=== PATIENT | male | born 1980 ===

== ENCOUNTER 2020-08-25 14:38 | Inpatient (IN) ==
[2020-08-25] MEDS ORDERED: ACETAMINOPHEN 1,000 MG/100 ML VIAL IV STA (17:43)
[2020-08-25] MEDS ORDERED: SODIUM CHLORIDE 0.9% 1000ML 1,000 ML IV ONE (17:43)
[2020-08-25] MEDS ORDERED: XYLOCAINE 1%/SOD BICARB 20 ML VIAL INFIL ONE (17:43)
--- NOTE | 2020-08-25 18:06 | Emergency Department Note ---
History of Present Illness General Chief complaint: Infection, Wound Stated complaint: RIGHT TOE INFECTION, VOMITING, PECTORAL PAIN Time Seen by Provider: 08/25/20 17:33 Source: patient Mode of arrival: ambulatory Limitations: no limitations History of Present Illness Provider complaint: Right toe infection and pain Onset (ago): week(s) Location: foot Radiation: non-radiation Severity: moderate Pain Consistency: + constant Maximum Pain Intensity: 5 Current Pain Intensity: 5 Quality: + constant Relieved By: + none Exacerbated By: + movement Associated symptoms: + denies other symptoms Treatments prior to arrival: none This is a 40-year-old male who presents due to concern for persistent and worsening right great toe infection and pain. Patient states he initially began with problems following an accidental stubbing of his toe at home in which she believes small wooden splinters got underneath the toenail. He states his was a nurse stuck them out, and contacted a friend of hers who evaluated him in the emergency department. Due to the fact that he is a type I diabetic he was immediately started on Bactrim to prevent any worsening infection. He states pain and swelling slowly worsened. He states he was seen here 2 weeks ago, and told to follow-up as an outpatient. No additional antibiotics were prescribed. He states since the initial injury, he has had a small black scab to the right great toe. In the interim he was concern for worsening infection and obtained a second course of antibiotic treatment, which she states was Bactrim again. Patient states he finished the second course 4 days ago and is continued to had increased pain, redness, swelling, and now a foul odor. No prior history of MRSA or osteomyelitis. No new or worsening trauma. Patient states the toe will occasionally drain. He states the black scab is unchanged in size and color. He states he is still cleaning his toes daily. No prior history of wounds or recurrent cellulitis. No additional new trauma. He states his blood sugar levels have been running high when he has checked them at home recently, and he has had one prior episode of DKA. Pt seen during a time of high acuity and national emergency pandemic while wearing PPE. Home Medications Medication Instructions Recorded Confirmed Type amitriptyline 25 mg tablet 25 mg PO HS 08/18/20 08/25/20 History bupropion HCl 300 mg 24 hr tablet, 300 mg PO QAM 08/18/20 08/25/20 History extended release dicyclomine 10 mg capsule 10 mg PO QID 08/18/20 08/25/20 History gabapentin 600 mg tablet 1,200 mg PO TID 08/18/20 08/25/20 History insulin glargine 100 unit/mL (3 20 unit SUBCUT [facility] 08/18/20 08/25/20 History mL) subcutaneous pen (Basaglar KwikPen U-100 Insulin) insulin lispro 100 unit/mL 1 sliding scale dose SUBCUT 08/18/20 08/25/20 History subcutaneous solution (Humalog USEASDIRECTD U-100 Insulin) multivitamin 1 tab PO DAILY 08/18/20 08/25/20 History trazodone 50 mg tablet 25 mg PO HS 08/18/20 08/25/20 History Avenox 30 mcg SUBCUT WK 08/25/20 08/25/20 History clonidine HCl 0.1 mg tablet 0.1 mg PO TID PRN 08/25/20 08/25/20 History cyanocobalamin (vitamin B-12) 1,000 mcg PO DAILY 08/25/20 08/25/20 History 1,000 mcg tablet (Vitamin B-12) food supplemt, lactose-reduced 1 ea PO BID 08/25/20 08/25/20 History (Ensure) hydroxyzine HCl 50 mg tablet 50 mg PO TID PRN 08/25/20 08/25/20 History omeprazole 40 mg capsule,delayed 40 mg PO DAILY 08/25/20 08/25/20 History release Allergies Allergy/AdvReac Type Severity Reaction Status Date / Time ketorolac [From Toradol] Allergy Intermediate Hives Verified 08/25/20 18:32 Penicillins Allergy Intermediate Hives Verified 08/25/20 18:32 Past Med/Surg History Medical History Diabetes mellitus type 1 Social History Smoking Status: Never smoker Hx Alcohol Use: No Hx Substance Use: Yes Last Used Substance: Unknown Last Used Substance Other:: pt reports "months" Communication Ability: Effective marital status: Current Living Situation: Rehab Other Information That Helps Us Care for You: No Feels Safe at Home: Yes Safety Concerns: Feels Safe At This Time Assistive Devices: None Review of Systems See HPI for pertinent positives & negatives. and A total of 10 systems reviewed and were otherwise negative All systems reviewed & are unremarkable except as noted in HPI & below Physical Exam Vital Signs Vital Signs - 24 hr 08/25/20 20:31 Pulse Rate [Apical] 88 Respiratory Rate 18 Blood Pressure [Right Arm] 138/82 Blood Pressure Mean [Right Arm] 100 Pulse Oximetry 98 Oxygen Delivery Method Room Air GENERAL: alert, well appearing, well nourished, no distress, non-toxic EYE EXAM: normal conjunctiva, PERRL and EOM's grossly intact OROPHARYNX: no exudate, no erythema, lips, buccal mucosa, and tongue normal and mucous membranes are moist NECK: supple, no nuchal rigidity, no adenopathy, non-tender LUNGS: Clear to auscultation. Normal chest wall mechanics, no w/r/r HEART: no murmurs, S1 normal and S2 normal ABDOMEN: abdomen soft, non-tender, normo-active bowel sounds, no masses, no rebound or guarding. BACK: Back is symmetrical on inspection and there is no deformity, no midline tenderness, no CVA tenderness. SKIN: no rashes and no bruising UPPER EXTREMITIES: upper extremities are grossly normal. FROM, nml pulses b/l. LOWER EXTREMITIES: No pitting edema. FROM, nml pulses b/l. Right great toe with eschar noted along the medial aspect of the anterior/medial great toe adjacent to the nail. Appearance of evolving paronychia along the medial aspect of the nail also. No active drainage. There is a foul odor coming from this area. Great toe does appear more edematous, and does have mild surrounding erythema. NEURO EXAM: Normal sensorium, cranial nerves II-XII grossly intact, normal speech, no gross weakness of arms, no gross weakness of legs. Gross sensation intact. Procedures Abscess I/D Site: foot (Right great toe) Side (if applicable): right Sedation/analgesia: none Local Anesthetic: lidocaine 1% (Digital block of right great toe) Amount of anesthesia used (mL): 4 Technique: other (18-gauge needle along nailbed into apparent paronychia) Amount of fluid expressed (mL): 1 Irrigation: Yes Packing used?: none Course Course 1849: I&D of paronychia performed at bedside. Please see procedure note. Per patient's request, I updated his over the phone. Administered Medications Amitriptyline HCl (Amitriptyline Hcl 25 Mg Tab) 25 mg PO HS [facility] Stop: 09/24/20 22:59 Last Admin: 08/25/20 23:36 Dose: 25 mg Documented by: [id number] Bupropion HCl (Bupropion Xl 300 Mg Tabcr) 300 mg PO QAM [facility] Stop: 09/25/20 08:59 Last Admin: 08/26/20 08:37 Dose: 300 mg Documented by: [id number] Cyanocobalamin (Cyanocobalamin 500 Mcg Tablet (Vitamin B-12)) 1,000 mcg PO DAILY [facility] Stop: 09/25/20 08:59 Last Admin: 08/26/20 08:37 Dose: 1,000 mcg Documented by: [id number] Dicyclomine HCl (Dicyclomine Hcl 10 Mg Cap) 10 mg PO QID [facility] Stop: 09/24/20 22:59 Last Admin: 08/26/20 17:10 Dose: 10 mg Documented by: [id number] Admin: 08/26/20 12:46 Dose: 10 mg Documented by: [id number] Admin: 08/26/20 08:37 Dose: 10 mg Documented by: [id number] Admin: 08/25/20 23:35 Dose: 10 mg Documented by: [id number] Gabapentin (Gabapentin 600 Mg Tab) 1,200 mg PO TID@0700,1200,1700 [facility] Stop: 09/24/20 22:59 Last Admin: 08/26/20 17:08 Dose: 1,200 mg Documented by: [id number] Admin: 08/26/20 12:40 Dose: 1,200 mg Documented by: [id number] Admin: 08/26/20 05:38 Dose: 1,200 mg Documented by: [id number] Admin: 08/25/20 23:35 Dose: 1,200 mg Documented by: [id number] Meropenem 500 mg/ Syringe 10 mls @ 2 mls/min IV Q6H [facility]; Protocol Stop: 10/07/20 00:00 Last Admin: 08/26/20 17:07 Dose: 2 mls/min Documented by: [id number] Admin: 08/26/20 12:39 Dose: 2 mls/min Documented by: [id number] Admin: 08/26/20 05:44 Dose: 2 mls/min Documented by: [id number] Admin: 08/26/20 00:08 Dose: 2 mls/min Documented by: [id number] Vancomycin HCl 1,000 mg/ (Sodium Chloride) 270 mls @ 200 mls/hr IV Q8H [facility] Stop: 10/07/20 01:59 Last Infusion: 08/26/20 19:00 Dose: 0 mls/hr Documented by: [id number] Admin: 08/26/20 17:30 Dose: 200 mls/hr Documented by: [id number] Infusion: 08/26/20 10:37 Dose: 0 mls/hr Documented by: [id number] Admin: 08/26/20 09:16 Dose: 200 mls/hr Documented by: [id number] Infusion: 08/26/20 03:17 Dose: 0 mls/hr Documented by: [id number] Admin: 08/26/20 01:56 Dose: 200 mls/hr Documented by: [id number] Insulin Aspart (Insulin Aspart 100 Units/Ml 3 Ml Pen) 0 units SC ACHS [facility] Stop: 09/25/20 07:29 Last Admin: 08/26/20 17:31 Dose: 12 units Documented by: [id number] Cosigned by: [id number] Admin: 08/26/20 12:46 Dose: 4 units Documented by: [id number] Cosigned by: [id number] Admin: 08/26/20 08:41 Dose: 3 units Documented by: [id number] Cosigned by: [id number] Miscellaneous (*Interferon Beta-1*Order Awaiting Action) 1 ea N/A QS [facility] Stop: 09/25/20 00:00 Last Admin: 08/26/20 13:59 Dose: Not Given Documented by: [id number] Admin: 08/26/20 08:13 Dose: Not Given Documented by: [id number] Admin: 08/26/20 00:08 Dose: Not Given Documented by: [id number] Multivitamins (Multivitamin Tab) 1 tab PO DAILY [facility] Stop: 09/25/20 08:59 Last Admin: 08/26/20 08:38 Dose: 1 tab Documented by: [id number] Pantoprazole Sodium (Pantoprazole 40 Mg Tab) 40 mg PO DAILY [facility]; Protocol Stop: 09/25/20 08:59 Last Admin: 08/26/20 08:38 Dose: 40 mg Documented by: [id number] Trazodone HCl (Trazodone Hcl 50 Mg Tab) 25 mg PO HS [facility] Stop: 09/24/20 22:59 Last Admin: 08/25/20 23:35 Dose: 25 mg Documented by: [id number] Discontinued Medications Diphenhydramine HCl (Diphenhydramine 50 Mg/Ml Vial) 25 mg IV NOW STA Stop: 08/25/20 22:12 Last Admin: 08/25/20 22:15 Dose: 25 mg Documented by: [id number] Sodium Chloride (Nss 1000ml) 1,000 mls @ 999 mls/hr IV .Q1H1M ONE Stop: 08/25/20 18:43 Last Infusion: 08/25/20 19:34 Dose: 0 mls/hr Documented by: [id number] Admin: 08/25/20 18:14 Dose: 999 mls/hr Documented by: [id number] Acetaminophen (Ofirmev) 1,000 mg in 100 mls @ 400 mls/hr IV NOW STA Stop: 08/25/20 17:57 Last Infusion: 08/25/20 18:52 Dose: 0 mls/hr Documented by: [id number] Admin: 08/25/20 18:10 Dose: 400 mls/hr Documented by: [id number] Vancomycin HCl 1,500 mg/ (Sodium Chloride) 530 mls @ 200 mls/hr IV NOW ONE Stop: 08/25/20 21:48 Last Infusion: 08/25/20 22:35 Dose: 0 mls/hr Documented by: [id number] Admin: 08/25/20 19:36 Dose: 200 mls/hr Documented by: [id number] Cefepime HCl (Maxipime) 2,000 mg in 20 mls @ 5 mls/min IV NOW STA; Protocol Stop: 08/25/20 19:13 Last Admin: 08/25/20 19:36 Dose: 5 mls/min Documented by: [id number] Insulin Glargine (Insulin Glargine Solostar 100 Units/Ml 3 Ml Pen) 20 units SC AMHS [facility] Stop: 09/25/20 08:59 Last Admin: 08/26/20 08:41 Dose: 20 units Documented by: [id number] Cosigned by: [id number] Ioversol (Optiray 320 100ml) 94 ml IV ONCE ONE Stop: 08/25/20 19:05 Last Admin: 08/25/20 19:05 Dose: 1 ml Documented by: [id number] Lidocaine HCl (Xylocaine 1%/Sod Bicarb 20 Ml Vial) 20 ml INFIL NOW ONE Stop: 08/25/20 17:44 Last Admin: 08/25/20 18:52 Dose: 20 ml Documented by: [id number] Miscellaneous Information (Dc All Previously Ordered Diabetes Meds) 1 ea N/A ONE ONE Stop: 08/25/20 21:05 Last Admin: 08/25/20 21:59 Dose: Not Given Documented by: [id number] Non-Formulary Medication (Food Supplemt, Lactose-Reduced [Ensure]) 1 ea PO BID [facility] Stop: 09/24/20 22:50 Last Admin: 08/26/20 07:21 Dose: Not Given Documented by: [id number] Medical Decision Making Differential Diagnosis Differential diagnosis includees etiologies such as cellulitis, abscess, MRSA infection, DVT, necrotizing fasciitis, dermatitis, drug eruption, as well as others were entertained. Medical Records Attestation: I reviewed the patient's medical records. Home Medications Current Medication List: was personally reviewed by me Laboratory Data Attestation: I reviewed the patient's lab results. Result diagrams: 08/26/20 05:46 08/26/20 05:46 Lab Results 08/25/20 08/25/20 08/25/20 Range/Units 17:58 17:58 17:58 WBC 5.15 (4.8-10.8) K/uL RBC 4.27 L (4.7-6.1) M/uL Hgb 12.9 L (14.0-18.0) g/dL Hct 39.0 L (42-52) % MCV 91.3 (80-100) fL MCH 30.2 (25-34) pg MCHC 33.1 (32-36) g/dL RDW Std Deviation 50.1 H (36.4-46.3) fL RDW Coeff of Sanchez 14.8 H (11.5-14.5) % Plt Count 383 (130-400) K/uL MPV 9.3 (7.4-10.4) fL Immature Gran % (Auto) 0.2 % Neut % (Auto) 50.1 % Lymph % (Auto) 36.9 % [place] % (Auto) 9.1 % Eos % (Auto) 3.1 % Baso % (Auto) 0.6 % Neut # (Auto) 2.58 (1.4-6.5) K/uL Lymph # (Auto) 1.90 (1.2-3.4) K/uL [place] # (Auto) 0.47 (0.11-0.59) K/uL Eos # (Auto) 0.16 (0-0.5) K/uL Baso # (Auto) 0.03 (0-0.2) K/uL Immature Gran # (Auto) 0.01 (0.00-0.02) K/uL Sodium 138 (136-145) mmol/L Potassium 4.2 (3.5-5.1) mmol/L Chloride 104 (98-107) mmol/L Carbon Dioxide 29 (21-32) mmol/L Anion Gap 4.0 (3-11) BUN 14 (7-18) mg/dl Creatinine 0.80 (0.6-1.4) mg/dl Est Cr Clr Drug Dosing 124.2 ml/min Est GFR ( Amer) 127.7 ml/min Est GFR (Non-Af Amer) 110.2 ml/min BUN/Creatinine Ratio 17.5 (10-20) Glucose 246 H (70-99) mg/dl Lactate 1.0 (0.4-2.0) mmol/L Calcium 9.0 (8.5-10.1) mg/dl Total Bilirubin < 0.1 L (0.2-1) mg/dl AST 13 L (15-37) U/L ALT 18 (12-78) U/L Alkaline Phosphatase 111 (45-117) U/L Total Protein 6.9 (6.4-8.2) gm/dl Albumin 3.0 L (3.4-5.0) gm/dl Globulin 3.9 (2.5-4.0) gm/dl Albumin/Globulin Ratio 0.8 L (0.9-2) COVID-19 Eval Order SARS-CoV-2 (PCR) (Negative) 08/25/20 08/25/20 Range/Units 19:45 19:45 WBC (4.8-10.8) K/uL RBC (4.7-6.1) M/uL Hgb (14.0-18.0) g/dL Hct (42-52) % MCV (80-100) fL MCH (25-34) pg MCHC (32-36) g/dL RDW Std Deviation (36.4-46.3) fL RDW Coeff of Sanchez (11.5-14.5) % Plt Count (130-400) K/uL MPV (7.4-10.4) fL Immature Gran % (Auto) % Neut % (Auto) % Lymph % (Auto) % [place] % (Auto) % Eos % (Auto) % Baso % (Auto) % Neut # (Auto) (1.4-6.5) K/uL Lymph # (Auto) (1.2-3.4) K/uL [place] # (Auto) (0.11-0.59) K/uL Eos # (Auto) (0-0.5) K/uL Baso # (Auto) (0-0.2) K/uL Immature Gran # (Auto) (0.00-0.02) K/uL Sodium (136-145) mmol/L Potassium (3.5-5.1) mmol/L Chloride (98-107) mmol/L Carbon Dioxide (21-32) mmol/L Anion Gap (3-11) BUN (7-18) mg/dl Creatinine (0.6-1.4) mg/dl Est Cr Clr Drug Dosing ml/min Est GFR ( Amer) ml/min Est GFR (Non-Af Amer) ml/min BUN/Creatinine Ratio (10-20) Glucose (70-99) mg/dl Lactate (0.4-2.0) mmol/L Calcium (8.5-10.1) mg/dl Total Bilirubin (0.2-1) mg/dl AST (15-37) U/L ALT (12-78) U/L Alkaline Phosphatase (45-117) U/L Total Protein (6.4-8.2) gm/dl Albumin (3.4-5.0) gm/dl Globulin (2.5-4.0) gm/dl Albumin/Globulin Ratio (0.9-2) COVID-19 Eval Order Covid19 at [facility] SARS-CoV-2 (PCR) NEGATIVE (Negative) Imaging Data Radiologist's Impression: Toe X-Ray 08/25/20 17:44 XR toe(s) RT min 2V CLINICAL HISTORY: great toe infection COMPARISON: None. DISCUSSION: No acute fracture or dislocation seen. Questionable lucency is seen at the medial distal aspect of the first distal phalanx. Prominent vascular calcifications are seen. No definite soft tissue defect is demonstrated. IMPRESSION: Questionable minimal osseous lucency at the distal first phalanx without definite fracture may represent developing osteomyelitis versus normal variant. No definite soft tissue lesion is seen. Atherosclerosis. ACT 112: Negative or not required by law. The above report was generated using voice recognition software. It may contain grammatical, syntax or spelling errors. Electronically signed by: Jenna Tse DO 08/25/2020 6:41 PM MDM Narrative This is a 40-year-old male who presents due to concern for worsening toe infection despite 2 courses of outpatient antibiotics. Patient concerned as he is a type I diabetic and his blood sugars have been elevated recently. Initial concern for possible evolving osteomyelitis given appearance of patient's toe. X-ray suggestive of possible abnormality. Patient's labs otherwise reassuring despite elevated blood glucose. Patient was afebrile here. I did attempt bedside I&D of the paronychia that was visualized on exam, however no drainage adequate enough for wound culture. Patient started on broad-spectrum antibiotics as a precaution. Case discussed with hospitalist and CT imaging of the foot ordered additionally as a precaution. Patient made aware of all results and I did update his over the phone per his request. Patient verbalized understanding of need for additional inpatient evaluation and monitoring given risk and was in agreement with the plan. An order was placed for continuous cardiac monitoring. The monitor shows a rate of _92_ with _normal sinus_ rhythm. Impression & Plan Infected blister of great toe of right foot, Diabetes mellitus type 1, Hyperglycemia, Failure of outpatient treatment Discharge Plan Visit Data Chief Complaint: Infection, Wound Stated Complaint: RIGHT TOE INFECTION, VOMITING, PECTORAL PAIN ED Provider: Kassidy Hutchison Discharge Problem: Infected blister of great toe of right foot, Diabetes mellitus type 1, Hyperglycemia, Failure of outpatient treatment Patient Disposition: Admitted As Inpatient Discharge Instructions Interventions: ED Discharge Assessment Last Done: 08/25/20 22:32 Discharge Problem: Infected blister of great toe of right foot Qualifiers: Encounter type: initial encounter Qualified Code(s): S90.421A - Blister (nonthermal), right great toe, initial encounter Diabetes mellitus type 1 Qualifiers: Diabetes mellitus complication status: with hyperglycemia Qualified Code(s): E10.65 - Type 1 diabetes mellitus with hyperglycemia
[2020-08-25 18:15] LABS: Basophils # (auto) 0.03 K/uL (0-0.2); Basophils % (auto) 0.6 %; Eosinophils # (auto) 0.16 K/uL (0-0.5); Eosinophils % (auto) 3.1 %; Hemoglobin 12.9 g/dL (14.0-18.0); Immature Granulocytes # (auto) 0.01 K/uL (0.00-0.02); Immature Granulocytes % (auto) 0.2 %; Lymphocytes % (auto) 36.9 %; Mean Corpuscular Hemoglobin 30.2 pg (25-34); Mean Corpuscular Hgb Conc 33.1 g/dL (32-36); Mean Corpuscular Volume 91.3 fL (80-100); Mean Platelet Volume 9.3 fL (7.4-10.4); Monocytes # (auto) 0.47 K/uL (0.11-0.59); Monocytes % (auto) 9.1 %; Neutrophils # (auto) 2.58 K/uL (1.4-6.5); Neutrophils % (auto) 50.1 %; Platelet Count 383 K/uL (130-400); RDW Coefficient of Variation 14.8 % (11.5-14.5); RDW Standard Deviation 50.1 fL (36.4-46.3); Red Blood Count 4.27 M/uL (4.7-6.1); White Blood Count 5.15 K/uL (4.8-10.8)
[2020-08-25 18:29] LABS: Alanine Aminotransferase 18 U/L (12-78); Aspartate Aminotransferase 13 U/L (15-37); BUN Creatinine Ratio 17.5 (10-20); Blood Urea Nitrogen 14 mg/dl (7-18); Carbon Dioxide 29 mmol/L (21-32); Chloride 104 mmol/L (98-107); Creatinine Clr Calc Pharmacy 124.2 ml/min; Est GFR (African American) 127.7 ml/min; Est GFR (Non-African American) 110.2 ml/min; Glucose 246 mg/dl (70-99); Potassium 4.2 mmol/L (3.5-5.1); Sodium 138 mmol/L (136-145)
[2020-08-25 18:32] LABS: Albumin Globulin Ratio 0.8 (0.9-2); Alkaline Phosphatase 111 U/L (45-117); Bilirubin,Total < 0.1 mg/dl (0.2-1); Globulin 3.9 gm/dl (2.5-4.0); Total Protein 6.9 gm/dl (6.4-8.2)
--- NOTE | 2020-08-25 18:42 | XRay Report ---
XR toe(s) RT min 2V CLINICAL HISTORY: great toe infection COMPARISON: None. DISCUSSION: No acute fracture or dislocation seen. Questionable lucency is seen at the medial distal aspect of the first distal phalanx. Prominent vascular calcifications are seen. No definite soft tissue defect is demonstrated. IMPRESSION: Questionable minimal osseous lucency at the distal first phalanx without definite fracture may repre sent developing osteomyelitis versus normal variant. No definite soft tissue lesion is seen. Atherosclerosis. ACT 112: Negative or not required by law. The above report was generated using voice recognition software. It may contain grammatical, syntax o r spelling errors. Electronically signed by: Jenna Tse DO 08/25/2020 6:41 PM
[2020-08-25] MEDS ORDERED: OPTIRAY 320 100ml IV ONE (19:04)
[2020-08-25] MEDS ORDERED: VANCOMYCIN CONSULT ACTIVE PRN (19:10)
[2020-08-25] MEDS ORDERED: CEFEPIME 2,000 MG/20 ML VIAL IV STA (19:10)
[2020-08-25] MEDS ORDERED: VANCOMYCIN HCL 1,500 MG in SODIUM CHLORIDE 0.9% 500 ML IV ONE (19:10)
--- NOTE | 2020-08-25 19:49 | CT Scan Report ---
CT foot RT w con CT DOSE: 167.86 mGy.cm CLINICAL HISTORY: ?osteo of great toe seen on xray TECHNIQUE: A dose lowering technique was utilized adhering to the principles of ALARA. COMPARISON STUDY: None. FINDINGS: Minimal deformity at the tip of the distal first phalanx is seen without definite lytic or sclerotic appearance to suggest acute osteomyelitis. There is no soft tissue defect or asymmetrical soft tissue edema is seen at the region of the first toe. Small osteophyte is seen at the lateral basal aspect of the first phalanx associated with linear luce ncy which might represent nondisplaced fracture (series 3 image 214) also there is small ossified fra gment is seen at the base of the second proximal phalanx (series 3 image 214) which might also repres ent fracture of unknown acuity. Small linear lucency is seen at the distal tip of the lateral malleolus likely representing nondispla yazan fracture, better visualized on sagittal and coronal reconstruction (series 400 image 14 and serie s 401 image 130) IMPRESSION: 1. No CT evidence of osteomyelitis is seen at this time. 2. Few small nondisplaced fracture involving phalanges and lateral malleolus as detailed above. ACT 112: Negative or not required by law. The above report was generated using voice recognition software. It may contain grammatical, syntax o r spelling errors. Electronically signed by: Jenna Tse DO 08/25/2020 7:47 PM
--- NOTE | 2020-08-25 20:37 | History & Physical Report ---
Date of Service August 25, 2020 Assessment & Plan (1) Diabetes mellitus type 1: Plan: Sukumar is a 40-year-old male with a notable history of type 1 diabetes, multiple sclerosis on Avonex who presented to [facility] for ongoing right great toe pain despite 2 courses of oral Bactrim, subsequently found to have evidence of cellulitis on exam concerning for diabetic foot infection, as well as CT findings demonstrating multiple small fractures. Diabetic Foot Infection At this point, this does appear to be a developing, but moderate diabetic foot infection. There is concern that he does have a degree of immunosuppression from Avelox treatment CT of the foot not demonstrating any obvious evidence of osteomyelitis, but does demonstrate small phalangeal fractures Refractory to 2 courses of Bactrim as outpatient Initiate broad-spectrum coverage with Pseudomonas and MRSA: Patient is reporting anaphylactic history to penicillins. ---> To minimize potential overlap, will initiate meropenem and vancomycin Consult podiatry Consult wound care CBC, ESR, CRP in the a.m. PT ordered Tylenol as needed for pain, can consider titrating as needed Type I Diabetes * Patient with known h/o T1DM * Does take Basoglar 20U qAM/HS -- will continue * SSI ordered * A1c in AM * BSG goal - 100-140 Multiple Sclerosis * continue gabapentin while here * receives Avenox weekly History of Narcotic Abuse * Patient with ongoing outpatient narcotic rehabilitation - last use > 50 days ago * No current use of alcohol or other substances * Judicious use of analgesics based on level of pain Anxiety / Mood * Continue home Trazodone * Continue home Atarax, clonidine p.r.n. * Continue home amitriptyline * continue home Wellbutrin Code: FULL CODE Diet: DM1 diet Dispo: MS PPX: SCDs (2) Infected blister of great toe of right foot: (3) Multiple sclerosis: History of Present Illness Chief Complaint: Sukumar is a 40-year-old male with a notable history of type 1 diabetes mellitus, multiple sclerosis on Avonex who presents to [facility] for evaluation of ongoing right great toe pain. Of note, patient was seen here approximately 1 week ago for evaluation of this-at the time, he reported stubbing his toe and getting a wood splinters underneith his toenail approximately 1.5 months prior. There was ongoing redness and pain. Since that time, he has been on 2 courses of Bactrim for this. Since that time, he notes that his pain has gotten significantly worse. He has had to decrease the amount of ambulation he has been doing due to pain within his first great toe and just proximal to there. He also notes that a small black scab has formed on the medial aspect of his right great toe. In addition to this, he says that pain, redness has gotten much worse; he also reports it has been quite malodorous. Over the last several days, he reports nausea, loss of appetite, and significant fatigue. He denies any history of previous foot infection. Denies any history of neuropathy. He has been cleaning his toe daily with soap and water. He does have a history of multiple sclerosis for which he receives weekly Avelox. He reports being on prednisone intermittently throughout the past, but none recently. He follows with [facility] neurology in [place]. Regarding other medical history, he does reports currently being in drug rehabilitation therapy for narcotic disuse approximately 50 days ago following a difficult social situation. He denies any use of narcotics or other recreational drug since that time. He endorses smoking half a pack per day for the last 27 years (14.5-pack-year history). No use of any alcohol. In the ER, patient was found to be hemodynamically stable and afebrile. Initial x-ray of his right foot demonstrated minimal osseous lucency within his first distal phalanx of the right foot, concerning for osteomyelitis. Follow-up CT scan of the right foot demonstrated minimal deformity at the tip of the distal first phalanx without definite lytic or sclerotic appearance that would be suggestive of osteomyelitis; there is also small nondisplaced fractures within the second phalanx and lateral malleolus. He was started on IV vancomycin. Primary Care Provider: NO PCP Allergies Allergy/AdvReac Type Severity Reaction Status Date / Time ketorolac [From Toradol] Allergy Intermediate Hives Verified 08/25/20 18:32 Penicillins Allergy Intermediate Hives Verified 08/25/20 18:32 Home Medications Medication Instructions Recorded Confirmed Type amitriptyline 25 mg tablet 25 mg PO HS 08/18/20 08/25/20 History bupropion HCl 300 mg 24 hr tablet, 300 mg PO QAM 08/18/20 08/25/20 History extended release dicyclomine 10 mg capsule 10 mg PO QID 08/18/20 08/25/20 History gabapentin 600 mg tablet 1,200 mg PO TID 08/18/20 08/25/20 History insulin glargine 100 unit/mL (3 20 unit SUBCUT AMHS 08/18/20 08/25/20 History mL) subcutaneous pen (Basaglar KwikPen U-100 Insulin) insulin lispro 100 unit/mL 1 sliding scale dose SUBCUT 08/18/20 08/25/20 History subcutaneous solution (Humalog USEASDIRECTD U-100 Insulin) multivitamin 1 tab PO DAILY 08/18/20 08/25/20 History trazodone 50 mg tablet 25 mg PO HS 08/18/20 08/25/20 History Avenox 30 mcg SUBCUT WK 08/25/20 08/25/20 History clonidine HCl 0.1 mg tablet 0.1 mg PO TID PRN 08/25/20 08/25/20 History cyanocobalamin (vitamin B-12) 1,000 mcg PO DAILY 08/25/20 08/25/20 History 1,000 mcg tablet (Vitamin B-12) food supplemt, lactose-reduced 1 ea PO BID 08/25/20 08/25/20 History (Ensure) hydroxyzine HCl 50 mg tablet 50 mg PO TID PRN 08/25/20 08/25/20 History omeprazole 40 mg capsule,delayed 40 mg PO DAILY 08/25/20 08/25/20 History release Past Med/Surg History Medical History Diabetes mellitus type 1 Social History Smoking Status: Never smoker Hx Alcohol Use: No Hx Substance Use: Yes Last Used Substance: Unknown Last Used Substance Other:: pt reports "months" Communication Ability: Effective marital status: Current Living Situation: Rehab Other Information That Helps Us Care for You: No Feels Safe at Home: Yes Safety Concerns: Feels Safe At This Time Assistive Devices: None Review of Systems Review of Systems: Constitutional: Endorses chills, malaise Eyes: Denies double vision, vision change, eye pain ENT: Denies ear pain, sore throat, sinus pain Cardiovascular: Denies Chest pain, chest pressure, palpitations, extremity swelling Respiratory: Denies shortness of breath, cough, sputum production, difficulty breathing Gastrointestinal: Endorses nausea Genitourinary: Denies urinary symptoms including dysuria Musculoskeletal: Endorses significant pain within the first toe of the right foot, but not elsewhere Integumentary:Denies rash, lesions, bruising Neurological: Denies headache, numbness, tingling, focal weakness Physical Exam Physical Exam: General: Tired, but overall well-appearing 40-year-old gentleman who is lying back in his hospital bed, relaxed upon my arrival. Upon conversing, patient does become intermittently tearful and agitated. He reports being in moderate distress secondary to his pain. HEENT: NCAT. Eyes - Sclera are white, anicteric, and without injection. PERRL. EOMs display full ROM bilaterally. Mouth - MMM with no tonsillar edema or exudates. Cardiac: Normal rate and regular rhythm; S1 and S2 present with no murmurs, rubs, or gallops. Pulmonary: Good respiratory effort with symmetric expansion of the chest. No use of accessory muscles. Lungs demonstrated intermittent wheezes in upper lobes, but not elsewhere. No crackles. Abdominal: Normoactive bowel sounds. Abdomen was soft, nondistended, and non- tender to palpation. No hepatomegaly or splenomegaly. MSK: Visual examination of the right great toes demonstrates discoloration secondary to iodine application. Grossly, it does appear more edematous compared to the left side. There is evidence of a mild, superficial ulcer with dried blood versus small eschar at the medial border of the nailbed. Even the most minimal palpation does elicit significant tenderness. Capillary refill is under 2 seconds. Gentle palpation of the phalanges does not reveal any deformity. No crepitus. There is mild tenderness to palpation extending from the base of the second digit to the base of the great toe. There is no other tenderness throughout the foot. Passive dorsiflexion of the great toe does elicit some pain more proximal towards the ankle. Great toe strength is 5 out of 5. Ankle strength is 5 out of 5. Dorsalis pedis pulse 2+. Extremities: Upper and lower extremities are warm and well perfused. Capillary refill assessed in UE was < 3 sec. Psych: Well-developed, well-nourished, appropriately dressed for occasion. Behavior is cooperative and appropriate. Affect is WNL. Insight is appropriate. Results & Data Results & Data ([facility]) Vital Signs (Past 12 Hours) Vital Signs Temp Pulse Pulse Resp BP BP Pulse Ox 08/25/20 19:14 95 H 18 134/83 98 08/25/20 18:55 77 18 134/70 99 08/25/20 14:50 36.3 C L 115 H 19 122/84 96 Supervising Physician Co-Signing Physician Notes Attending addendum: I have physically seen this patient, have supervised the medical residents activities, and agree with the H&P unless as otherwise noted. Assessment and Plan: Diabetic foot/great toe infection- Patient is relatively immunocompromised on Avonex Failed outpatient 2 courses of Bactrim Placed on vancomycin IV per pharmacokinetic monitoring Ertapenem 1 g IV daily Follow wound culture and sensitivity Follow blood culture and sensitivity Diabetes mellitus type 1- Continue insulin glargine Placed on Accu-Cheks before meals and at bedtime with NovoLog coverage per scale Check hemoglobin A1c Multiple sclerosis- Continue gabapentin. Avonex is taking weekly in the outpatient setting Remaining orders and notations as noted Resident Activity Tracking Resident Involvement: Resident Care Provided Care Provided: Adult Hospital Medicine (1) Infected blister of great toe of right foot Encounter type: initial encounter Qualified Code(s): S90.421A - Blister (nonthermal), right great toe, initial encounter; L08.9 - Local infection of the skin and subcutaneous tissue, unspecified
[2020-08-25] MEDS ORDERED: DEXTROSE 50% 50 ML SYRINGE IV PRN (21:04)
[2020-08-25] MEDS ORDERED: CARBOHYDRATES FOR HYPOGLYCEMIA PO PRN (21:04)
[2020-08-25] MEDS ORDERED: GLUCOSE 40% GEL 15 GM TUBE PO PRN (21:04)
[2020-08-25] MEDS ORDERED: GLUCAGON FOR INJ 1 MG VIAL SQ PRN (21:04)
[2020-08-25] MEDS ORDERED: DC ALL PREVIOUSLY ORDERED DIABETES MEDS ONE (21:04)
[2020-08-25] MEDS ORDERED: GLUCOSE 10 TABS/TUBE PO PRN (21:04)
[2020-08-25] MEDS ORDERED: diphenhydrAMINE 50 MG/ML VIAL IV STA (22:11)
[2020-08-25] MEDS ORDERED: hydrOXYzine HCl 25 MG TAB PO PRN (22:51)
[2020-08-25] MEDS ORDERED: NON-FORMULARY MEDICATION (Food Supplemt, Lactose-Reduced [Ensure] Liquid) PO SCH (22:51)
[2020-08-25] MEDS ORDERED: ERTAPENEM SODIUM 1,000 MG in SODIUM CHLORIDE 0.9% 50 ML IV SCH (22:51)
[2020-08-25] MEDS ORDERED: cloNIDine HCL 0.1 MG TAB PO PRN (22:51)
[2020-08-25] MEDS ORDERED: MEROPENEM CONSULT ACITVE PRN (23:15)
[2020-08-25] MEDS: GABAPENTIN 600 MG TAB PO SCH (23:35)
[2020-08-25] MEDS: traZODone HCL 50 MG TAB PO SCH (23:35)
[2020-08-25] MEDS: DICYCLOMINE HCL 10 MG CAP PO SCH (23:35)
[2020-08-25] MEDS: AMITRIPTYLINE HCL 25 MG TAB PO SCH (23:36)
--- NOTE | 2020-08-25 23:48 | Pharmacy Report ---
Pharmacy Abx Dose Short Note - Date of Service August 25, 2020 - Assessment & Plan Assessment 40 year old M admitted from a drug rehab facility secondary to osteomyelitis of right great toe * PMHx significant for T1DM, current every day smoker, and Multiple Sclerosis on Interferon Beta-1a therapy * Afebrile. No white count. Does not appear cultures were taken. * Discussed with resident, want Pseudomonas and MRSA coverage so Ertapenem was switched to Meropenem. Cefepime to be avoid secondary to penicillin allergy despite patient tolerating a dose of Cefepime in the ED. Of note, failed two outpatient courses of Bactrim. Plan Vancomycin * Loading Dose: 1500 mg (19 mg/kg) IV x 1 * Maintenance Dose: 1000 mg (12 mg/kg) IV every 8 hours * Goal trough level: 15 - 20 mcg/mL * Trough level ordered for 08/27/20 prior to the 1000 dose Meropenem * 500 mg IV every 6 hours Pharmacy will continue to follow and will adjust dose/frequency as necessary. Thank you.
[2020-08-26] MEDS: MEROPENEM 500 MG in SYRINGE 0 ML IV SCH ×4 (00:08→17:07)
[2020-08-26] MEDS: VANCOMYCIN HCL 1,000 MG in SODIUM CHLORIDE 0.9% 250 ML IV SCH ×3 (01:56→17:30)
[2020-08-26] MEDS: GABAPENTIN 600 MG TAB PO SCH ×3 (05:38→17:08)
[2020-08-26 06:16] LABS: Basophils # (auto) 0.02 K/uL (0-0.2); Basophils % (auto) 0.4 %; Eosinophils # (auto) 0.23 K/uL (0-0.5); Eosinophils % (auto) 4.8 %; Hematocrit (blood only) 37.8 % (42-52); Hemoglobin 12.3 g/dL (14.0-18.0); Immature Granulocytes # (auto) 0.01 K/uL (0.00-0.02); Immature Granulocytes % (auto) 0.2 %; Lymphocytes # (auto) 1.95 K/uL (1.2-3.4); Lymphocytes % (auto) 40.9 %; Mean Corpuscular Hemoglobin 29.9 pg (25-34); Mean Corpuscular Hgb Conc 32.5 g/dL (32-36); Mean Corpuscular Volume 91.7 fL (80-100); Mean Platelet Volume 9.3 fL (7.4-10.4); Monocytes # (auto) 0.38 K/uL (0.11-0.59); Neutrophils # (auto) 2.18 K/uL (1.4-6.5); Neutrophils % (auto) 45.7 %; Platelet Count 345 K/uL (130-400); RDW Coefficient of Variation 14.8 % (11.5-14.5); RDW Standard Deviation 50.1 fL (36.4-46.3); Red Blood Count 4.12 M/uL (4.7-6.1); White Blood Count 4.77 K/uL (4.8-10.8)
[2020-08-26 06:52] LABS: Anion Gap 0 (3-11); BUN Creatinine Ratio 14.6 (10-20); Blood Urea Nitrogen 10 mg/dl (7-18); C Reactive Protein < 0.29 mg/dl (0-0.29); Calcium 8.5 mg/dl (8.5-10.1); Carbon Dioxide 32 mmol/L (21-32); Chloride 106 mmol/L (98-107); Creatinine Clr Calc Pharmacy 148.3 ml/min; Est GFR (African American) 137.4 ml/min; Est GFR (Non-African American) 118.5 ml/min; Glucose 263 mg/dl (70-99); Potassium 4.1 mmol/L (3.5-5.1); Sodium 138 mmol/L (136-145)
[2020-08-26 08:02] LABS: Estimated Average Glucose 272 mg/dl; Hemoglobin A1C 11.1 % (4.5-5.6)
[2020-08-26] MEDS: DICYCLOMINE HCL 10 MG CAP PO SCH ×4 (08:37→21:23)
[2020-08-26] MEDS: CYANOCOBALAMIN 500 MCG TABLET (VITAMIN B-12) PO SCH (08:37)
[2020-08-26] MEDS: buPROPion XL 300 MG TABCR PO SCH (08:37)
[2020-08-26] MEDS: PANTOprazole 40 MG TAB PO SCH (08:38)
[2020-08-26] MEDS: MULTIVITAMIN TAB PO SCH (08:38)
[2020-08-26] MEDS: INSULIN ASPART 100 UNITS/ML 3 ML PEN SC SCH ×4 (08:41→21:24)
[2020-08-26] MEDS ORDERED: INSULIN GLARGINE SOLOSTAR 100 UNITS/ML 3 ML PEN SC SCH ×2 (09:00→21:00)
--- NOTE | 2020-08-26 12:04 | Hospitalist Progress Note ---
Date of Service August 26, 2020 Assessment & Plan (1) Infected blister of great toe of right foot: Plan: Continue Merrem and vancomycin empirically Await wound care input Await podiatry evaluation (2) Multiple sclerosis: Plan: Patient takes Avenox as an outpatient Continue other medications as ordered (3) Diabetes mellitus type 1: Plan: Blood sugars have been somewhat uncontrolled today and has been over 200 since this morning. I do also note his hemoglobin A1c is 11.1. Will increase Basaglar to 30 units, continue sliding scale for now. Admission and Anticipated Discharge Date Admission Date: August 25, 2020 Subjective Patient seen and examined. He is having significant pain in his right great toe which is the area infection. I did review imaging, no evidence of osteomyelitis, but there are multiple small fractures as documented. Patient has had no fevers or chills. Patient has not yet been seen by podiatry or wound care at the time my evaluation. Physical Exam Constitutional: cooperative; no acute distress Neck: trachea midline, no thyromegaly Respiratory: normal respiratory effort Auscultation: lungs clear to auscultation bilaterally; no crackles, no rales, no rhonchi and no wheezes Cardiovascular: Rate/Rhythm: regular rate and regular rhythm Heart Sounds: normal S1 and normal S2 Gastrointestinal (Abdomen): Inspection/Auscultation: abdomen normal to inspection Percussion/Palpation: abdomen soft; abdomen nontender, no guarding, abdomen not rigid and no hepatosplenomegaly Musculoskeletal: Right great toe with eschar medial to the nail, minimal erythema. No drainage. Did not manipulate as this is extremely painful for the patient. Skin: no rashes, warm and dry Results & Data Results & Data ([facility]) Vital Signs (Past 12 Hours) Vital Signs Temp Pulse Resp BP Pulse Ox 08/26/20 07:40 37.0 C 93 H 16 148/80 H 96 Laboratory Results Laboratory Results WBC 4.77 K/uL (4.8-10.8) L 08/26/20 05:46 RBC 4.12 M/uL (4.7-6.1) L 08/26/20 05:46 Hgb 12.3 g/dL (14.0-18.0) L 08/26/20 05:46 Hct 37.8 % (42-52) L 08/26/20 05:46 MCV 91.7 fL (80-100) 08/26/20 05:46 MCH 29.9 pg (25-34) 08/26/20 05:46 MCHC 32.5 g/dL (32-36) 08/26/20 05:46 RDW Std Deviation 50.1 fL (36.4-46.3) H 08/26/20 05:46 RDW Coeff of Sanchez 14.8 % (11.5-14.5) H 08/26/20 05:46 Plt Count 345 K/uL (130-400) 08/26/20 05:46 MPV 9.3 fL (7.4-10.4) 08/26/20 05:46 Immature Gran % (Auto) 0.2 % 08/26/20 05:46 Neut % (Auto) 45.7 % 08/26/20 05:46 Lymph % (Auto) 40.9 % 08/26/20 05:46 [place] % (Auto) 8.0 % 08/26/20 05:46 Eos % (Auto) 4.8 % 08/26/20 05:46 Baso % (Auto) 0.4 % 08/26/20 05:46 Neut # (Auto) 2.18 K/uL (1.4-6.5) 08/26/20 05:46 Lymph # (Auto) 1.95 K/uL (1.2-3.4) 08/26/20 05:46 [place] # (Auto) 0.38 K/uL (0.11-0.59) 08/26/20 05:46 Eos # (Auto) 0.23 K/uL (0-0.5) 08/26/20 05:46 Baso # (Auto) 0.02 K/uL (0-0.2) 08/26/20 05:46 Immature Gran # (Auto) 0.01 K/uL (0.00-0.02) 08/26/20 05:46 ESR 33 mm/hr (0-15) H 08/26/20 05:46 Sodium 138 mmol/L (136-145) 08/26/20 05:46 Potassium 4.1 mmol/L (3.5-5.1) 08/26/20 05:46 Chloride 106 mmol/L (98-107) 08/26/20 05:46 Carbon Dioxide 32 mmol/L (21-32) 08/26/20 05:46 Anion Gap 0 (3-11) L 08/26/20 05:46 BUN 10 mg/dl (7-18) 08/26/20 05:46 Creatinine 0.67 mg/dl (0.6-1.4) 08/26/20 05:46 Est Cr Clr Drug Dosing 148.3 ml/min 08/26/20 05:46 Est GFR ( Amer) 137.4 ml/min 08/26/20 05:46 Est GFR (Non-Af Amer) 118.5 ml/min 08/26/20 05:46 BUN/Creatinine Ratio 14.6 (10-20) 08/26/20 05:46 Glucose 263 mg/dl (70-99) H 08/26/20 05:46 POC Glucose 244 mg/dl (70-99) H 08/26/20 08:19 Estimat Average Glucose 272 mg/dl 08/26/20 05:46 Hemoglobin A1c 11.1 % (4.5-5.6) H 08/26/20 05:46 Lactate 1.0 mmol/L (0.4-2.0) 08/25/20 17:58 Calcium 8.5 mg/dl (8.5-10.1) 08/26/20 05:46 Total Bilirubin < 0.1 mg/dl (0.2-1) L 08/25/20 17:58 AST 13 U/L (15-37) L 08/25/20 17:58 ALT 18 U/L (12-78) 08/25/20 17:58 Alkaline Phosphatase 111 U/L (45-117) 08/25/20 17:58 C-Reactive Protein < 0.29 mg/dl (0-0.29) 08/26/20 05:46 Total Protein 6.9 gm/dl (6.4-8.2) 08/25/20 17:58 Albumin 3.0 gm/dl (3.4-5.0) L 08/25/20 17:58 Globulin 3.9 gm/dl (2.5-4.0) 08/25/20 17:58 Albumin/Globulin Ratio 0.8 (0.9-2) L 08/25/20 17:58 COVID-19 Eval Order Covid19 at [facility] 08/25/20 19:45 SARS-CoV-2 (PCR) NEGATIVE (Negative) 08/25/20 19:45 Impressions Toe X-Ray 08/25/20 17:44 XR toe(s) RT min 2V CLINICAL HISTORY: great toe infection COMPARISON: None. DISCUSSION: No acute fracture or dislocation seen. Questionable lucency is seen at the medial distal aspect of the first distal phalanx. Prominent vascular calcifications are seen. No definite soft tissue defect is demonstrated. IMPRESSION: Questionable minimal osseous lucency at the distal first phalanx without definite fracture may represent developing osteomyelitis versus normal variant. No definite soft tissue lesion is seen. Atherosclerosis. ACT 112: Negative or not required by law. The above report was generated using voice recognition software. It may contain grammatical, syntax or spelling errors. Electronically signed by: Jenna Tse DO 08/25/2020 6:[address] 08/25/20 18:59 CT foot RT w con CT DOSE: 167.86 mGy.cm CLINICAL HISTORY: ?osteo of great toe seen on xray TECHNIQUE: A dose lowering technique was utilized adhering to the principles of ALARA. COMPARISON STUDY: None. FINDINGS: Minimal deformity at the tip of the distal first phalanx is seen without definite lytic or sclerotic appearance to suggest acute osteomyelitis. There is no soft tissue defect or asymmetrical soft tissue edema is seen at the region of the first toe. Small osteophyte is seen at the lateral basal aspect of the first phalanx associated with linear lucency which might represent nondisplaced fracture (series 3 image 214) also there is small ossified fragment is seen at the base of the second proximal phalanx (series 3 image 214) which might also represent fracture of unknown acuity. Small linear lucency is seen at the distal tip of the lateral malleolus likely representing nondisplaced fracture, better visualized on sagittal and coronal reconstruction (series 400 image 14 and series 401 image 130) IMPRESSION: 1. No CT evidence of osteomyelitis is seen at this time. 2. Few small nondisplaced fracture involving phalanges and lateral malleolus as detailed above. ACT 112: Negative or not required by law. The above report was generated using voice recognition software. It may contain grammatical, syntax or spelling errors. Electronically signed by: Jenna Tse DO 08/25/2020 7:47 PM PG Care Time/CCT Total # of Minutes Spent Total Time Spent with Patient: Total time spent is greater than 50% in coordination of care (as documented) at patient's floor/unit and/or counseling patient: Coding Level of Care Code 16208 Subseq Hosp Care Lvl 2 Diagnoses Multiple sclerosis G35 Diabetes mellitus type 1 E10.9 Infected blister of great toe of right foot S90.421A; L08.9 Encounter type: initial encounter (1) Infected blister of great toe of right foot Encounter type: initial encounter Qualified Code(s): S90.421A - Blister (nonthermal), right great toe, initial encounter; L08.9 - Local infection of the skin and subcutaneous tissue, unspecified
--- NOTE | 2020-08-26 13:04 | Podiatry Consultation ---
Date of Consultation August 26, 2020 Assessment & Plan (1) Diabetes mellitus type 1: Type 1 DM with infection toenail injury, recommend outpatient toenail removal, will schedule in office tomorrow if d/c today - recommend for nursing to apply dressing with adaptic gauze/and roll gauze, will need surgical shoe for d/c and follow up with me tomorrow in office Code: FULL CODE Diet: DM1 diet Dispo: MS PPX: SCDs (2) Infected blister of great toe of right foot: Encounter type: initial encounter Qualified Code(s): S90.421A - Blister (nonthermal), right great toe, initial encounter; L08.9 - Local infection of the skin and subcutaneous tissue, unspecified (3) Multiple sclerosis: History of Present Illness Reason for Consultation: Right foot hallux infection in the setting of diabetes Attending Physician: Jean Mccormick DO History of Present Illness Patient was seen at bedside today for his right foot. Patient is noted as having a history of MS, DM type 1 uncontrolled with A1C of 11.1, Narcotic abuse and resides at [facility], and anxiety. Patient stated he hit his toe (toes) against wood and since that time has been having pain associated with the right great toe, likely he sustained an injury to the toe that resulted in the current injury presenting as an ingrown toenail with infection and likely non displaced fracture of the phalanx per the CT scan results reviewed today, of note the phalanx fracture, ID in the 2nd and 1st phalanx do not warrant surgical intervention patient will benefit from partial nail avulsion procedure, I recommend this to be done outpatient, from the perspective of the toe infection he has no WBC, neutrophils noted to be WNL, as long as he is stable medically he can be D/c and I recommend for his procedure to be performed in my office, I will schedule him as early as tomorrow for the in office toenail removal Patient would also benefit from a surgical shoe to wear Allergies Allergy/AdvReac Type Severity Reaction Status Date / Time ketorolac [From Toradol] Allergy Intermediate Hives Verified 08/25/20 18:32 Penicillins Allergy Intermediate Hives Verified 08/25/20 18:32 Home Medications Medication Instructions Recorded Confirmed Type amitriptyline 25 mg tablet 25 mg PO HS 08/18/20 08/25/20 History bupropion HCl 300 mg 24 hr tablet, 300 mg PO QAM 08/18/20 08/25/20 History extended release dicyclomine 10 mg capsule 10 mg PO QID 08/18/20 08/25/20 History gabapentin 600 mg tablet 1,200 mg PO TID 08/18/20 08/25/20 History insulin glargine 100 unit/mL (3 20 unit SUBCUT AMHS 08/18/20 08/25/20 History mL) subcutaneous pen (Basaglar KwikPen U-100 Insulin) insulin lispro 100 unit/mL 1 sliding scale dose SUBCUT 08/18/20 08/25/20 History subcutaneous solution (Humalog USEASDIRECTD U-100 Insulin) multivitamin 1 tab PO DAILY 08/18/20 08/25/20 History trazodone 50 mg tablet 25 mg PO HS 08/18/20 08/25/20 History Avenox 30 mcg SUBCUT WK 08/25/20 08/25/20 History clonidine HCl 0.1 mg tablet 0.1 mg PO TID PRN 08/25/20 08/25/20 History cyanocobalamin (vitamin B-12) 1,000 mcg PO DAILY 08/25/20 08/25/20 History 1,000 mcg tablet (Vitamin B-12) food supplemt, lactose-reduced 1 ea PO BID 08/25/20 08/25/20 History (Ensure) hydroxyzine HCl 50 mg tablet 50 mg PO TID PRN 08/25/20 08/25/20 History omeprazole 40 mg capsule,delayed 40 mg PO DAILY 08/25/20 08/25/20 History release Patient History Medical History Diabetes mellitus type 1 Social History Smoking Status: Never smoker Hx Alcohol Use: No Hx Substance Use: Yes Last Used Substance: Unknown Last Used Substance Other:: pt reports "months" Communication Ability: Effective marital status: Current Living Situation: Rehab Other Information That Helps Us Care for You: No Feels Safe at Home: Yes Safety Concerns: Feels Safe At This Time Assistive Devices: None Physical Exam Skin: right hallux with eschar and pain/dried blood at medial nail border related to ingrown toenail, pedal pulses palpable and pedal hair present, patient notes loss of sensation to distal hallux likely related to DM Results & Data ([facility]) Vital Signs (Past 12 Hours) Vital Signs Temp Pulse Resp BP Pulse Ox 08/26/20 07:40 37.0 C 93 H 16 148/80 H 96 Laboratory Results reviewed without WBC elevation Diagnostic Findings negative for osteo
[2020-08-26] MEDS ORDERED: POST OP SHOE SCH (13:15)
[2020-08-26] MEDS: AMITRIPTYLINE HCL 25 MG TAB PO SCH (21:23)
[2020-08-26] MEDS: traZODone HCL 50 MG TAB PO SCH (21:23)
[2020-08-26] MEDS: INSULIN GLARGINE SOLOSTAR 100 UNITS/ML 3 ML PEN SC SCH (21:23)
[2020-08-26] MEDS ORDERED: INSULIN ASPART 100 UNITS/ML 3 ML PEN SC ONE (23:45)
[2020-08-27] MEDS: MEROPENEM 500 MG in SYRINGE 0 ML IV SCH ×2 (00:15→06:07)
--- NOTE | 2020-08-27 01:58 | Billing Data ---
Date of Service August 27, 2020 Coding Level of Care Code 33459 Initial Inpt Care Lvl 3
[2020-08-27] MEDS: VANCOMYCIN HCL 1,000 MG in SODIUM CHLORIDE 0.9% 250 ML IV SCH ×2 (02:30→13:00)
[2020-08-27] MEDS: GABAPENTIN 600 MG TAB PO SCH ×4 (06:06→21:00)
[2020-08-27] MEDS: MULTIVITAMIN TAB PO SCH (07:48)
[2020-08-27] MEDS: DICYCLOMINE HCL 10 MG CAP PO SCH ×4 (07:48→21:01)
[2020-08-27] MEDS: CYANOCOBALAMIN 500 MCG TABLET (VITAMIN B-12) PO SCH (07:49)
[2020-08-27] MEDS: buPROPion XL 300 MG TABCR PO SCH (07:49)
[2020-08-27] MEDS: PANTOprazole 40 MG TAB PO SCH (07:49)
[2020-08-27] MEDS ORDERED: MoRPHine SULFATE 2 MG/ML CARP IV STA ×2 (08:26→15:47)
[2020-08-27] MEDS ORDERED: ACETAMINOPHEN 500 MG TAB PO PRN (08:27)
--- NOTE | 2020-08-27 08:30 | Hospitalist Progress Note ---
Date of Service August 27, 2020 Assessment & Plan (1) Infected blister of great toe of right foot: Plan: Patient seen by wound care nurse who gave dressing direction. No appearance of significant infection Patient also seen by podiatry. They recommend removal of toenail Toenail removal must be done as an outpatient due to equipment needs Podiatry is offered to do this on discharge. Patient discharged on it would be coordinated as he is brought here from [facility] rehab. Anticipate discharge tomorrow morning 8:00 and [facility] will transfer patient up to [facility] Patient will need to see Podiatry in [place] for toenail removal Patient refusing Tylenol 1 dose of morphine 2 mg IV this morning We will give 1 more dose of morphine this afternoon (2) Multiple sclerosis: Plan: Continue Avelox as an outpatient Outpatient management (3) Diabetes mellitus type 1: Plan: Lantus 30 units twice daily initially now reduced to 20 units twice daily Continue NovoLog sliding scale insulin Continue diabetic carb count diet (4) DVT prophylaxis: Plan: No chemical prophylaxis in the event the toenail can be removed Encourage ambulation Admission and Anticipated Discharge Date Admission Date: August 25, 2020 Subjective Patient seen and examined in bed. Reports significant pain to right foot and right great toe There is no streaking on the leg. No edema. No evidence of infection or erythema beyond the great toe Patient denies fever, chills, sweats, rigors No complaints other than pain Review of Systems Review of Systems: All systems reviewed & are unremarkable except as noted in Subjective Physical Exam Physical Exam: GENERAL : No acute distress EYES: No icterus, gaze conjugate NOSE: No evidence of epistaxis MOUTH: No lesions or candidiasis NECK: Supple LUNGS: CTA B/L, no wheezes, rales or rhonchi HEART: Regular, rate controlled ABDOMEN: Soft, NT, ND, BS Present EXTREMITIES: No LE edema, pedal pulses intact and equal bilaterally. Bandage to right great toe. No extension of any erythema or warmth to the foot or leg NEURO: A&OX3 Results & Data Results & Data ([facility]) Vital Signs (Past 12 Hours) Vital Signs Temp Pulse Resp BP Pulse Ox 08/27/20 07:29 36.5 C 90 16 123/78 98 08/26/20 22:30 37.1 C 100 H 18 134/74 96 Laboratory Results 08/27/20 09:16 08/27/20 09:16 Procalcitonin is negative Diagnostic Findings CT foot RT w con CT DOSE: 167.86 mGy.cm CLINICAL HISTORY: ?osteo of great toe seen on xray TECHNIQUE: A dose lowering technique was utilized adhering to the principles of ALARA. COMPARISON STUDY: None. FINDINGS: Minimal deformity at the tip of the distal first phalanx is seen without definite lytic or sclerotic appearance to suggest acute osteomyelitis. There is no soft tissue defect or asymmetrical soft tissue edema is seen at the region of the first toe. Small osteophyte is seen at the lateral basal aspect of the first phalanx associated with linear lucency which might represent nondisplaced fracture (seri es 3 image 214) also there is small ossified fragment is seen at the base of the second proximal phalanx (series 3 image 214) which might also represent fracture of unknown acuity. Small linear lucency is seen at the distal tip of the lateral malleolus likely representing nondisplaced fracture, better visualized on sagittal and coronal reconstruction (series 400 image 14 and series 401 image 130) IMPRESSION: 1. No CT evidence of osteomyelitis is seen at this time. 2. Few small nondisplaced fracture involving phalanges and lateral malleolus as detailed above. ACT 112: Negative or not required by law. The above report was generated using voice recognition software. It may contain grammatical, syntax or spelling errors. Electronically signed by: Jenna Tse DO 08/25/2020 7:47 PM PG Care Time/CCT Total # of Minutes Spent Total Time Spent with Patient: Total time spent is greater than 50% in coordination of care (as documented) at patient's floor/unit and/or counseling patient: Greater than 60 minutes spent in coordination with case management, nursing, specialist. Multiple visits to patient throughout the day. Coding Level of Care Code 02431 Subseq Hosp Care Lvl 2 (25 - SIGNIFICANT, SEPARATELY IDENTIFIABLE ) Diagnoses Infected blister of great toe of right foot S90.421A; L08.9 Encounter type: initial encounter Multiple sclerosis G35 Diabetes mellitus type 1 E10.65 Diabetes mellitus complication status: with hyperglycemia DVT prophylaxis Z29.9 Time Spent (min) 60 (1) Infected blister of great toe of right foot Encounter type: initial encounter Qualified Code(s): S90.421A - Blister (nonthermal), right great toe, initial encounter; L08.9 - Local infection of the skin and subcutaneous tissue, unspecified (2) Diabetes mellitus type 1 Diabetes mellitus complication status: with hyperglycemia Qualified Code(s): E10.65 - Type 1 diabetes mellitus with hyperglycemia
[2020-08-27] MEDS: INSULIN GLARGINE SOLOSTAR 100 UNITS/ML 3 ML PEN SC SCH ×2 (08:50→21:06)
[2020-08-27] MEDS: INSULIN ASPART 100 UNITS/ML 3 ML PEN SC SCH ×4 (08:56→21:06)
[2020-08-27 09:29] LABS: Basophils # (auto) 0.02 K/uL (0-0.2); Basophils % (auto) 0.5 %; Eosinophils # (auto) 0.19 K/uL (0-0.5); Eosinophils % (auto) 4.3 %; Hematocrit (blood only) 39.4 % (42-52); Hemoglobin 13.2 g/dL (14.0-18.0); Immature Granulocytes # (auto) 0.01 K/uL (0.00-0.02); Immature Granulocytes % (auto) 0.2 %; Lymphocytes # (auto) 1.38 K/uL (1.2-3.4); Lymphocytes % (auto) 31.2 %; Mean Corpuscular Hemoglobin 30.5 pg (25-34); Mean Corpuscular Hgb Conc 33.5 g/dL (32-36); Neutrophils # (auto) 2.42 K/uL (1.4-6.5); Neutrophils % (auto) 54.8 %; Platelet Count 345 K/uL (130-400); RDW Coefficient of Variation 14.6 % (11.5-14.5); RDW Standard Deviation 48.3 fL (36.4-46.3); Red Blood Count 4.33 M/uL (4.7-6.1); White Blood Count 4.42 K/uL (4.8-10.8)
[2020-08-27] MEDS ORDERED: VANCOMYCIN TROUGH ONE (09:30)
[2020-08-27 10:03] LABS: BUN Creatinine Ratio 28.6 (10-20); Calcium 8.3 mg/dl (8.5-10.1); Creatinine Clr Calc Pharmacy 148.3 ml/min; Est GFR (African American) 137.4 ml/min; Est GFR (Non-African American) 118.5 ml/min; Potassium 4.5 mmol/L (3.5-5.1)
[2020-08-27] MEDS: AMITRIPTYLINE HCL 25 MG TAB PO SCH (21:01)
[2020-08-27] MEDS: traZODone HCL 50 MG TAB PO SCH (21:01)
[2020-08-27] MEDS ORDERED: traMADol HCL 50 MG TABLET PO STA (22:22)
[2020-08-28] MEDS ORDERED: traMADol HCL 50 MG TABLET PO STA (07:26)
[2020-08-28] MEDS: GABAPENTIN 600 MG TAB PO SCH (07:34)
[2020-08-28] MEDS: DICYCLOMINE HCL 10 MG CAP PO SCH (07:34)
[2020-08-28] MEDS: MULTIVITAMIN TAB PO SCH (07:35)
[2020-08-28] MEDS: PANTOprazole 40 MG TAB PO SCH (07:35)
[2020-08-28] MEDS: buPROPion XL 300 MG TABCR PO SCH (07:35)
[2020-08-28] MEDS: CYANOCOBALAMIN 500 MCG TABLET (VITAMIN B-12) PO SCH (07:35)
--- NOTE | 2020-08-28 07:36 | Discharge Summary ---
Date of Service August 28, 2020 Admission HPI Per Admitting Provider Chief Complaint: Sailaja is a 40-year-old male with a notable history of type 1 diabetes mellitus, multiple sclerosis on Avonex who presents to [facility] for evaluation of ongoing right great toe pain. Of note, patient was seen here approximately 1 week ago for evaluation of this-at the time, he reported stubbing his toe and getting a wood splinters underneith his toenail approximately 1.5 months prior. There was ongoing redness and pain. Since that time, he has been on 2 courses of Bactrim for this. Since that time, he notes that his pain has gotten significantly worse. He has had to decrease the amount of ambulation he has been doing due to pain within his first great toe and just proximal to there. He also notes that a small black scab has formed on the medial aspect of his right great toe. In addition to this, he says that pain, redness has gotten much worse; he also reports it has been quite malodorous. Over the last several days, he reports nausea, loss of appetite, and significant fatigue. He denies any history of previous foot infection. Denies any history of neuropathy. He has been cleaning his toe daily with soap and water. He does have a history of multiple sclerosis for which he receives weekly Avelox. He reports being on prednisone intermittently throughout the past, but none recently. He follows with [facility] neurology in [place]. Regarding other medical history, he does reports currently being in drug rehabilitation therapy for narcotic disuse approximately 50 days ago following a difficult social situation. He denies any use of narcotics or other recreational drug since that time. He endorses smoking half a pack per day for the last 27 years (14.5-pack-year history). No use of any alcohol. In the ER, patient was found to be hemodynamically stable and afebrile. Initial x-ray of his right foot demonstrated minimal osseous lucency within his first distal phalanx of the right foot, concerning for osteomyelitis. Follow-up CT scan of the right foot demonstrated minimal deformity at the tip of the distal first phalanx without definite lytic or sclerotic appearance that would be suggestive of osteomyelitis; there is also small nondisplaced fractures within the second phalanx and lateral malleolus. He was started on IV vancomycin. Primary Care Provider: NO PCP Admission Exam Per Admitting Provider General: Tired, but overall well-appearing 40-year-old gentleman who is lying back in his hospital bed, relaxed upon my arrival. Upon conversing, patient do es become intermittently tearful and agitated. He reports being in moderate distress secondary to his pain. HEENT: NCAT. Eyes - Sclera are white, anicteric, and without injection. PERRL. EOMs display full ROM bilaterally. Mouth - MMM with no tonsillar edema or exudates. Cardiac: Normal rate and regular rhythm; S1 and S2 present with no murmurs, rubs, or gallops. Pulmonary: Good respiratory effort with symmetric expansion of the chest. No use of accessory muscles. Lungs demonstrated intermittent wheezes in upper lobes, but not elsewhere. No crackles. Abdominal: Normoactive bowel sounds. Abdomen was soft, nondistended, and non- tender to palpation. No hepatomegaly or splenomegaly. MSK: Visual examination of the right great toes demonstrates discoloration secondary to iodine application. Grossly, it does appear more edematous compared to the left side. There is evidence of a mild, superficial ulcer with dried blood versus small eschar at the medial border of the nailbed. Even the most minimal palpation does elicit significant tenderness. Capillary refill is under 2 seconds. Gentle palpation of the phalanges does not reveal any deformity. No crepitus. There is mild tenderness to palpation extending from the base of the second digit to the base of the great toe. There is no other tenderness throughout the foot. Passive dorsiflexion of the great toe does elicit some pain more proximal towards the ankle. Great toe strength is 5 out of 5. Ankle strength is 5 out of 5. Dorsalis pedis pulse 2+. Extremities: Upper and lower extremities are warm and well perfused. Capillary refill assessed in UE was < 3 sec. Psych: Well-developed, well-nourished, appropriately dressed for occasion. Behavior is cooperative and appropriate. Affect is WNL. Insight is appropriate. Principal Diagnosis None Discharge Exam GENERAL : No acute distress EYES: No icterus, gaze conjugate NOSE: No evidence of epistaxis MOUTH: No lesions or candidiasis NECK: Supple LUNGS: CTA B/L, no wheezes, rales or rhonchi HEART: Regular, rate controlled ABDOMEN: Soft, NT, ND, BS Present EXTREMITIES: No LE edema, pedal pulses intact and equal bilaterally. Bandage to right great toe. No extension of any erythema or warmth to the foot or leg NEURO: A&OX3 Discharge Data Allergies Allergy/AdvReac Type Severity Reaction Status Date / Time ketorolac [From Toradol] Allergy Intermediate Hives Verified 08/25/20 18:32 Penicillins Allergy Intermediate Hives Verified 08/25/20 18:32 Consultations 08/25/20 19:33 ED Decision to Admit Stat 08/25/20 20:32 [place] [address] Podiatry ConsultationSigned Patient: SAILAJA BONNERAdmit Date: 08/25/20MR#: [id number] Phy: Jean Mccormick DOAcct ID: [id number] Phy: PCP,NOBirth Date: 1980Fam Phy: Age: 40Location: 3ESex: MRoom/Bed: [facility] cc: ~ *NOTICE TO RECEIVING REPUBLICAN/AGENCY This information is strictly Confidential and protected under [place] law. [place] law prohibits you from making any further disclosure of this information unless further disclosure is expressly permitted by the written consent of the person to whom it pertains or is authorized by law. A general authorization for the release of medical or other information is not sufficient for this purpose. Hospital accepts no responsibility if the information is made available to any other person, INCLUDING THE PATIENT. Date of Consultation August 26, 2020 Assessment & Plan (1) Diabetes mellitus type 1: Type 1 DM with infection toenail injury, recommend outpatient toenail removal, will schedule in office tomorrow if d/c today - recommend for nursing to apply dressing with adaptic gauze/and roll gauze, will need surgical shoe for d/c and follow up with me tomorrow in office Code: FULL CODE Diet: DM1 diet Dispo: MS PPX: SCDs (2) Infected blister of great toe of right foot: Encounter type: initial encounter Qualified Code(s): S90.421A - Blister (nonthermal), right great toe, initial encounter; L08.9 - Local infection of the skin and subcutaneous tissue, unspecified (3) Multiple sclerosis: History of Present Illness Reason for Consultation: Right foot hallux infection in the setting of diabetes Attending Physician: Jean Mccormick DO History of Present Illness Patient was seen at bedside today for his right foot. Patient is noted as having a history of MS, DM type 1 uncontrolled with A1C of 11.1, Narcotic abuse and resides at [facility], and anxiety. Patient stated he hit his toe (toes) against wood and since that time has been having pain associated with the right great toe, likely he sustained an injury to the toe that resulted in the current injury presenting as an ingrown toenail with infection and likely non displaced fracture of the phalanx per the CT scan results reviewed today, of note the phalanx fracture, ID in the 2nd and 1st phalanx do not warrant surgical intervention patient will benefit from partial nail avulsion procedure, I recommend this to be done outpatient, from the perspective of the toe infection he has no WBC, neutrophils noted to be WNL, as long as he is stable medically he can be D/c and I recommend for his procedure to be performed in my office, I will schedule him as early as tomorrow for the in office toenail removal Patient would also benefit from a surgical shoe to wear Allergies Allergy/AdvReac Type Severity Reaction Status Date / Time ketorolac [From Toradol] Allergy Intermediate Hives Verified 08/25/20 18:32 Penicillins Allergy Intermediate Hives Verified 08/25/20 18:32 Home Medications Medication Instructions Recorded Confirmed Type amitriptyline 25 mg tablet 25 mg PO HS 08/18/20 08/25/20 History bupropion HCl 300 mg 24 hr tablet, 300 mg PO QAM 08/18/20 08/25/20 History extended release dicyclomine 10 mg capsule 10 mg PO QID 08/18/20 08/25/20 History gabapentin 600 mg tablet 1,200 mg PO TID 08/18/20 08/25/20 History insulin glargine 100 unit/mL (3 20 unit SUBCUT AMHS 08/18/20 08/25/20 History mL) subcutaneous pen (Basaglar KwikPen U-100 Insulin) insulin lispro 100 unit/mL 1 sliding scale dose SUBCUT 08/18/20 08/25/20 History subcutaneous solution (Humalog USEASDIRECTD U-100 Insulin) multivitamin 1 tab PO DAILY 08/18/20 08/25/20 History trazodone 50 mg tablet 25 mg PO HS 08/18/20 08/25/20 History Avenox 30 mcg SUBCUT WK 08/25/20 08/25/20 History clonidine HCl 0.1 mg tablet 0.1 mg PO TID PRN 08/25/20 08/25/20 History cyanocobalamin (vitamin B-12) 1,000 mcg PO DAILY 08/25/20 08/25/20 History 1,000 mcg tablet (Vitamin B-12) food supplemt, lactose-reduced 1 ea PO BID 08/25/20 08/25/20 History (Ensure) hydroxyzine HCl 50 mg tablet 50 mg PO TID PRN 08/25/20 08/25/20 History omeprazole 40 mg capsule,delayed 40 mg PO DAILY 08/25/20 08/25/20 History release Patient History Medical History Diabetes mellitus type 1 Social History Smoking Status: Never smoker Hx Alcohol Use: No Hx Substance Use: Yes Last Used Substance: Unknown Last Used Substance Other:: pt reports "months" Communication Ability: Effective marital status: Current Living Situation: Rehab Other Information That Helps Us Care for You: No Feels Safe at Home: Yes Safety Concerns: Feels Safe At This Time Assistive Devices: None Physical Exam Skin: right hallux with eschar and pain/dried blood at medial nail border related to ingrown toenail, pedal pulses palpable and pedal hair present, patient notes loss of sensation to distal hallux likely related to DM Results & Data ([facility]) Vital Signs (Past 12 Hours) Vital Signs Temp Pulse Resp BP Pulse Ox 08/26/20 07:40 37.0 C 93 H 16 148/80 H 96 Laboratory Results reviewed without WBC elevation Diagnostic Findings negative for osteo Signed By:<Electronically signed by Jennifer Garner DPM>08/26/20 1304 Created: 08/26/20 1255 Ordered Studies 08/25/20 18:59 CT foot RT w con Stat CT foot RT w con CT DOSE: 167.86 mGy.cm CLINICAL HISTORY: ?osteo of great toe seen on xray TECHNIQUE: A dose lowering technique was utilized adhering to the principles of ALARA. COMPARISON STUDY: None. FINDINGS: Minimal deformity at the tip of the distal first phalanx is seen without definite lytic or sclerotic appearance to suggest acute osteomyelitis. There is no soft tissue defect or asymmetrical soft tissue edema is seen at the region of the first toe. Small osteophyte is seen at the lateral basal aspect of the first phalanx associated with linear lucency which might represent nondisplaced fracture (series 3 image 214) also there is small ossified fragment is seen at the base of the second proximal phalanx (series 3 image 214) which might also represent fracture of unknown acuity. Small linear lucency is seen at the distal tip of the lateral malleolus likely representing nondisplaced fracture, better visualized on sagittal and coronal reconstruction (series 400 image 14 and series 401 image 130) IMPRESSION: 1. No CT evidence of osteomyelitis is seen at this time. 2. Few small nondisplaced fracture involving phalanges and lateral malleolus as detailed above. ACT 112: Negative or not required by law. The above report was generated using voice recognition software. It may contain grammatical, syntax or spelling errors. Electronically signed by: Jenna Tse DO 08/25/2020 7:47 PM Diabetes Follow up Diabetes Follow-up Needed for HgbA1c >9% Hospital Course (1) Infected blister of great toe of right foot: Patient seen by wound care nurse who gave dressing direction. No appearance of significant infection Patient also seen by podiatry. They recommend removal of toenail Toenail removal must be done as an outpatient due to equipment needs [facility] will transfer patient up to [facility] Patient will need to see Podiatry in [place] for toenail removal Tylenol as needed Patient initially started on broad based antibiotics for possible diabetic foot infection * All antibiotics stopped * Procalcitonin negative * No leukocytosis * No fever * Pain and inflammation limited to right great toe Orthotics consulted * Patient fitted with surgical shoe * Wear shoe to protect toe until toenail removed or other orders from podiatry Follow up recommended in [place] within the next 5-7 days (2) Multiple sclerosis: Continue Avelox as an outpatient Outpatient management (3) Diabetes mellitus type 1: Lantus 30 units twice daily initially now reduced to 20 units twice daily Continue NovoLog sliding scale insulin Continue diabetic carb count diet Complete abstention from smoking (4) DVT prophylaxis: No chemical prophylaxis in the event the toenail can be removed Encourage ambulation Total Time Total Time Spent Total Time Spent (In Minutes): 34 minutes including discharge instructions, summary and discussion/examination with patient Total Time Includes: Examination of the Patient, Discharge Planning, Medication Reconciliation, Communication With Other Providers and Other Discharge Plan Discharge Items Patient Disposition: Home - Self-Care Reason For Visit: DIABETIC FOOT INFECTION Discharge Diagnosis: Toe injury Condition on Discharge: Good Activity: Resume your previous activity Weightbearing: Right partial Weightbearing Comment: As tolerated Non-emergency contact: Primary Care Provider Call non-emergency contact if: you have any medication questions Follow-up/Referrals: PCP,NO [Primary Care Provider] - Diet: Carb Consistent or DM2 Addtl Attending Provider Instructions: Medications: no changes Please follow up with podiatry back in [place] to get toe nail removed Pending Studies at Discharge: No Stand-Alone Forms: [employer], Smoking Cessation Medications and DC Order Prescriptions: Continued multivitamin Tablet 1 tab PO DAILY RF: 0 gabapentin 600 mg Tablet 1,200 mg PO TID RF: 0 trazodone 50 mg Tablet 25 mg PO HS RF: 0 amitriptyline 25 mg Tablet 25 mg PO HS RF: 0 insulin lispro [Humalog U-100 Insulin] 100 unit/mL Solution 1 sliding scale dose SUBCUT USEASDIRECTD RF: 0 dicyclomine 10 mg Capsule 10 mg PO QID RF: 0 bupropion HCl 300 mg Tablet Extended Release 24 Hr 300 mg PO QAM RF: 0 Basaglar KwikPen U-100 Insulin 100 unit/mL (3 mL) Insulin Pen 20 unit SUBCUT AMHS RF: 0 Avenox 30 mcg subcut WK RF: 0 clonidine HCl 0.1 mg Tablet 0.1 mg PO TID PRN (Reason: DIRECTED W/HOLD PARAMETERS) RF: 0 cyanocobalamin (vitamin B-12) [Vitamin B-12] 1,000 mcg Tablet 1,000 mcg PO DAILY RF: 0 hydroxyzine HCl 50 mg Tablet 50 mg PO TID PRN (Reason: LOS) RF: 0 omeprazole 40 mg Capsule,Delayed Release(Dr/Ec) 40 mg PO DAILY RF: 0 Ensure Liquid 1 ea PO BID RF: 0 Discharge Orders: Discharge Order (Routine); Ordered 08/28/20 Ordered By: Donald Arrieta Admission Data Admit Date/Time: 08/25/20 20:32 Attending Provider: Donald Arrieat Admit Provider: Juan Daniel Quigley Primary Care Provider: PCP,NO Other Providers: Jennifer Garner ; Maxi Chisholm Other Interventions: Discharge Summary Assessment (RN) Last Done: 08/28/20 06:49 Supervising Physician Co-Signing Physician Notes Patient seen and examined on the day of discharge. I agree with the discharge summary by Scott PATTON. I have reviewed the chart including labs, imaging and plans for discharge. patient ready to go back to [facility], his ride is here will give a dose of Ultram prior to transport - Toe nail injury: pain control with Ultram, fitted with surgical shoe, will follow up with podiatry in [place] Coding Level of Care Code D/C DAY MANAGEMENT >30 MINS Diagnoses Infected blister of great toe of right foot S90.421A; L08.9 Encounter type: initial encounter Multiple sclerosis G35 Diabetes mellitus type 1 E10.65 Diabetes mellitus complication status: with hyperglycemia DVT prophylaxis Z29.9 Time Spent (min) 34 Home Health Attestation No Home Health Services are needed
[2020-08-28] MEDS: INSULIN GLARGINE SOLOSTAR 100 UNITS/ML 3 ML PEN SC SCH (07:39)
[2020-08-28] MEDS: INSULIN ASPART 100 UNITS/ML 3 ML PEN SC SCH (07:39)
== END 2020-08-28 08:57 | disposition home or self-care (01) | DRG 638 ==
LOC: ED 14:38 → SUATTDRO 20:32 → 3E 20:32